=== PATIENT | female | born 1950 | race Caucasian/White ===

== ENCOUNTER 2022-09-08 06:25 | Emergency (ER) | payer MEDICARE ==
[~2022-09-08] VITALS: Ht 167.6 cm; Wt 63.5 kg
[2022-09-08 06:55] VITALS: BP 152/98
[2022-09-08] MEDS ORDERED: ZOLP5TAB2 PO (07:02)
--- NOTE | 2022-09-08 07:13 | NUR ---
Patient discharged to home in stable condition. Written and verbal after care instructions given. Patient verbalizes understanding of instruction.
== END 2022-09-08 07:14 | disposition home or self-care (01) ==
LOC: ER 06:34
DX: G47.00 Insomnia, unspecified (principal); Z60.2 Problems related to living alone; Z79.899 Other long term (current) drug therapy